=== PATIENT | female | born 1945 | race Caucasian/White ===

== ENCOUNTER → 2020-08-03 | Outpatient (REF) | payer MEDICARE ==
[2020-08-03 17:09] LABS: THYROID STIMULATING HORMONE 3.61 uIU/ML (0.358-3.740); TOTAL 25(OH) VITAMIN D 47.9 NG/ML (30.0-100.0)
== END ==
LOC: M LABDRAWC 16:02
DX: E55.9 Vitamin D deficiency, unspecified (principal); E03.9 Hypothyroidism, unspecified

== ENCOUNTER 2020-11-06 10:46 | Emergency (ER) | payer MEDICARE, OTHER ==
[~2020-11-06] VITALS: Ht 165.1 cm; Wt 62.3 kg
--- OUTSIDE RECORDS SUMMARY | 2020-11-06 10:51 | CCD ---
Author Author [facility] Organization [facility] Address Unknown Phone Unavailable Care Team Providers Care Research Leader Name Role Phone Dominguez, Taz PA Unavailable Unavailable Dominguez, Taz PA Unavailable Unavailable Dominguez, Taz PA Unavailable Unavailable Dominguez, Taz PA Unavailable Unavailable Dominguez, Taz PA Unavailable Unavailable Dominguez, Taz PA Unavailable Unavailable Dominguez, Taz PA Unavailable Unavailable Dominguez, Taz PA Unavailable Unavailable Dominguez, Taz PA Unavailable Unavailable Dominguez, Taz PA Unavailable Unavailable Dominguez, Taz PA Unavailable Unavailable Dominguez, Taz PA Unavailable Unavailable Re-disclosure Warning The records that you are about to access may contain information from federally-assisted alcohol or drug abuse programs. If such information is present, then the following federally mandated warning applies: This information has been disclosed to you from records protected by federal confidentiality rules (42 CFR part 2). The federal rules prohibit you from making any further disclosure of this information unless further disclosure is expressly permitted by the written consent of the person to whom it pertains or as otherwise permitted by 42 CFR part 2. A general authorization for the release of medical or other information is NOT sufficient for this purpose. The Federal rules restrict any use of the information to criminally investigate or prosecute any alcohol or drug abuse patient.The records that you are about to access may contain highly sensitive health information, the redisclosure of which is protected by Article 27-F of the [place] Public Health law. If you continue you may have access to information: Regarding HIV / AIDS; Provided by facilities licensed or operated by the [facility] Office of Mental Health; or Provided by the [facility] Office for People With Developmental Disabilities. If such information is present, then the following [facility] mandated warning applies: This information has been disclosed to you from confidential records which are protected by state law. State law prohibits you from making any further disclosure of this information without the specific written consent of the person to whom it pertains, or as otherwise permitted by law. Any unauthorized further disclosure in violation of state law may result in a fine or shelter sentence or both. A general authorization for the release of medical or other information is NOT sufficient authorization for further disc losure. Encounters Encounter Providers Location Date Indications Data Source(s ) Emergency Attender: Taz NIETO 04/29 04:21:00 PM EDT - 04/29/2020 04:28:00 PM EDT [facility] Patient discharged. Insurance Providers Payer name Policy type / Coverage type Policy ID Covered democrat ID Covered democrat's relationship to steinberg Policy [employer] Plan Information MEDICARE COMPLETE [id number] SP [id number] [facility] MEDICARE [id number] S [id number] [facility] MEDICARE [id number] S [id number] ANSI-Medicare Part B [id number] ANS-Medicare Part B [id number] ANSI-Medicare Part B [id number] [facility] P [id number] S [id number] SELF PAY UNAVAILABLE SP UNAVAILA BLE [id number] Problems, Conditions, and Diagnoses Code Display Name Description Problem Type Effective Dates Data Source(s) Y93.89 Activity, other specified ACTIVITY, OTHER SPECIFIED Di agnosis 04/29/2020 04:21:00 PM T [facility] Y92.[address] in unspeci fied non-institutional (private) residence as the place of occurrence of the external cause UNSP PLACE IN UNSP NON-INSTITUT (PRIVATE) RESIDENC Diagnosis 04/29/2020 04:21:00 PM [facility] l X50.1XXA OVEREXERTION FROM PROLONGED STATIC OR AW KWARD POST OVEREXERTION FROM PROLONGED STATIC OR AWKWARD POST Diagnosis 04/29/2020 04:21:00 PM [facility] Z79.899 Other prison (current) drug therapy [facility]CURRENT[facility]UG THERAPY Diagnosis 04/29/2020 04:21:00 PM [facility] l S93.411A Sprain of calcaneofibular ligament of ri ght ankle, initial encounter SPRAIN OF CALCANEOFIBULAR LIGAMENT OF RIGHT ANKLE, Diagnosis 04:21:00 PM [facility] S99.911A Unspecified injury of right ankle, initi al encounter UNSPECIFIED INJURY OF RIGHT ANKLE, INITIAL ENCOUNTER Diagnosis 04/29/2020 04:21:00 PM [facility] Results ID Date Data Source [id number] 04/29/2020 04:25:00 PM [facility] DATE OF EXAMINATION: 04/29/2020 16:02 EDT HISTORY: Twisting injury TECHNIQUE: 2 views of the right ankle were obtained FINDINGS: Bones are mildly osteopenic. Mild osteoarthritis is noted. Small anteriortibiotalar joint is seen. IMPRESSION: Small anterior tibiotalar joint. Mild osteopenia. Small plantar calcaneal spur. Mild osteoarthritis. If patient's symptomatology persists completion of the exam and repeat studywould be recommended. Electronically signed in [id number] by: Chrissy Contreras M.D. 04/29/2020 16:19 EDT Name Value Range Interpretation Code Description Data Rosario rce(s) Supporting Document(s) Procedure
[2020-11-06] MEDS ORDERED: [UNRECOGNIZED DRUG - OTHER] PO (11:05)
[2020-11-06] MEDS ORDERED: SM F10002 PO (11:05)
--- NOTE | 2020-11-06 12:16 | REP ---
INDICATION: fall and landed on rt shoulder. COMPARISON: None. TECHNIQUE: Three views. FINDINGS: Three views right shoulder demonstrate an impacted acute fracture of the surgical neck of the right humerus without evidence of displacement. Glenohumeral and acromioclavicular joints are normally aligned. There is diffuse osteopenia. No right rib fracture is appreciated. IMPRESSION: Impacted fracture surgical neck right proximal humerus. Diffuse osteopenia. <Electronically signed by Solomon Cruz > 11/06/20 [id number]
--- OUTSIDE RECORDS SUMMARY | 2020-11-06 12:23 | CCD ---
Author Author [facility] Organization [facility] Address Unknown Phone Unavailable Care Team Providers Care Asset Analyst Name Role Phone Dominguez, Taz PA Unavailable Unavailable Dominguez, Taz PA Unavailable Unavailable Dominguez, Tza PA Unavailable Unavailable Dominguez, Taz PA Unavailable [...] is protected by Article 27-F of the [facility] Public Health law. If you continue you may have access to information: Regarding HIV / AIDS; Provided by facilities licensed or operated by the [facility] Office of Mental Health; or Provided by the [facility] Office for People With Developmental Disabilities. If such information is present, then the following [facility] mandated warning applies: This information [...] law may result in a fine or long term sentence or both. A general authorization for the release of medical or other information is NOT sufficient authorization for further disc losure. Encounters Encounter Providers Location Date Indications Data Source(s ) Emergency Attender: Taz NIETO 04/29 04:21:00 PM EDT - 04/29/2020 04:28:00 PM T [facility] Patient discharged. Insurance Providers Payer name Policy type / Coverage type Policy ID Covered alliance party ID Covered alliance party's relationship to steinberg Policy [employer] Plan Information MEDICARE COMPLETE [id number] SP [id number] [facility] MEDICARE [id number] S [id number] [facility] MEDICARE [id number] S [id number] ANSI-Medicare Part B [id number] ANSI-Medicare Part B [id number] ANSI-Medicare Part B [id number] [facility] P [id number] S [id number] SELF PAY UNAVAILABLE SP UNAVAILA BLE [id number] Problems, Conditions, and Diagnoses Code Display Name Description Problem Type Effective Dates Data Source(s) Y93.89 Activity, other specified ACTIVITY, OTHER SPECIFIED Di agnosis 04/29/2020 04:21:00 PM T [facility] Y92.[address] in unspeci fied non-institutional (private) residence as the place of occurrence of the external cause UNSP PLACE IN UNSP NON-INSTITUT (PRIVATE) RESIDENC Diagnosis 04/29/2020 04:21:00 PM [facility] l X50.1XXA OVEREXERTION FROM PROLONGED STATIC OR AW KWARD POST OVEREXERTION FROM PROLONGED STATIC OR AWKWARD POST Diagnosis 04/29/2020 04:21:00 PM [facility] Z79.899 Other [facility] (current) drug therapy O THER [facility] (CURRENT) DRUG THERAPY Diagnosis 04/29/2020 04:21:00 PM [facility] l S93.411A Sprain of calcaneofibular ligament of ri ght ankle, initial encounter SPRAIN OF CALCANEOFIBULAR LIGAMENT OF RIGHT ANKLE, Diagnosis 04:21:00 PM [facility] S99.911A Unspecified injury of right ankle, initi al encounter UNSPECIFIED INJURY OF RIGHT ANKLE, INITIAL ENCOUNTER Diagnosis 04/29/2020 04:21:00 PM [facility] Results ID Date Data Source [id number] 04/29/2020 04:25:00 PM [facility] DATE OF EXAMINATION: 04/29/2020 16:02 EDT HISTORY: [...]
[2020-11-06] MEDS: ACETAMINOPHEN TAB 650MG DOSE (2X325MG) PO ONE ×2 (12:45→13:02)
[2020-11-06 12:47] VITALS: BP 140/86
[2020-11-06] MEDS ORDERED: HYDR-3713 PO (12:53)
[2020-11-06] MEDS ORDERED: NORCO, ANEXSIA 5/325MG TABLET (HYDROcodone/ACETAMINOPHEN) PO ONE (13:00)
== END 2020-11-06 13:25 | disposition home or self-care (01) ==
LOC: M ED 10:46
DX: S42.214A Unspecified nondisplaced fracture of surgical neck of right humerus, initial encounter for closed fracture (principal); M85.811 Other specified disorders of bone density and structure, right shoulder; W01.0XXA Fall on same level from slipping, tripping and stumbling without subsequent striking against object, initial encounter; Y92.9 Unspecified place or not applicable; Y93.9 Activity, unspecified; Y99.9 Unspecified external cause status; E03.9 Hypothyroidism, unspecified; Z88.1 Allergy status to other antibiotic agents; Z91.040 Latex allergy status

== ENCOUNTER → 2024-03-13 | Outpatient (REF) | payer OTHER ==
[~2024-03-13] MED LIST: HYDR-3713 PO; SM F10002 PO; [UNRECOGNIZED DRUG - OTHER] PO
== END ==
LOC: M SFHCDERM 08:01
PROVIDERS: ATTEND Physician Assistant
DX: L72.9 Follicular cyst of the skin and subcutaneous tissue, unspecified (principal)